=== PATIENT | male | born 1980 | race Caucasian/White ===

== ENCOUNTER 2018-11-21 10:55 | Emergency (ER) | payer SELFPAY ==
[2018-11-21] MEDS ORDERED: NACL IV ONE ×3 (11:25)
[2018-11-21] MEDS ORDERED: MVI IV ONE ×3 (11:25)
[2018-11-21] MEDS ORDERED: DEXTROSE IV ONE ×3 (11:25)
[2018-11-21] MEDS ORDERED: VITAMIN K IV ONE ×3 (11:25)
[2018-11-21] MEDS ORDERED: Sodium Chloride 0.9% 10 ML Syringe FLUSH PRN (11:25)
[2018-11-21] MEDS ORDERED: THIAMINE IV ONE ×3 (11:25)
[2018-11-21] MEDS: LORazepam 2 MG/ML SDV IVPUSH PRN ×3 (11:35→14:43)
[2018-11-21] MEDS ORDERED: Ondansetron 4 MG Tab.DIS PO PRN (11:38)
[2018-11-21] MEDS ORDERED: LORazepam 2 MG/ML SDV ONE ×2 (11:40→14:33)
--- NOTE | 2018-11-21 11:47 | EDM.PDOC ---
ED HPI GENERAL MEDICAL PROBLEM - General Chief Complaint: Drug or Alcohol Abuse Stated Complaint: ETOH Abuse Time Seen by Provider: 11/21/18 11:19 Source of Information: Reports: Patient, RN History Limitations: Reports: Other (restless) - History of Present Illness INITIAL COMMENTS - FREE TEXT/NARRATIVE: 38 yr male presents and wants to go to detox. States he did have some alcohol today, but vomited, states he has been drinking heavily for about 2 weeks. Drinks about a traveler of vodka daily or 12 pack of beer. He does chew tobacco and a can last a few days. He used to smoke and hasn't smoked for about 4 years. States no other medication use. He thought he smoked weed about 1 day ago. States the anxiety has been bad and started about 5 am today, states if he has some alcohol in the morning, the anxiety usually goes away. States no hallucinations, no nausea until today. Stomach Pain Score (Numeric/FACES): 7 - Related Data Allergies Allergy/AdvReac Type Severity Reaction Status Date / Time No Known Allergies Allergy Verified 11/21/18 11:01 Home Meds: Home Meds NK [No Known Home Meds] 11/21/18 [History] ED ROS GENERAL - Review of Systems Review Of Systems: See Below Constitutional: Reports: Decreased Appetite HEENT: Reports: No Symptoms Respiratory: Reports: Cough Cardiovascular: Reports: No Symptoms GI/Abdominal: Reports: Decreased Appetite, Nausea. Denies: Abdominal Pain, Diarrhea : Reports: No Symptoms Musculoskeletal: Reports: Other (weakness and shakiness) Skin: Reports: No Symptoms Neurological: Reports: No Symptoms Psychiatric: Reports: Anxiety. Denies: Agitation, Hallucinations, Suicidal Ideation ED EXAM, GENERAL - Physical Exam Exam: See Below Exam Limited By: No Limitations General Appearance: Alert, No Apparent Distress, Anxious Ears: Hearing Grossly Normal Ear Exam: Bilateral Ear: Auricle Normal Nose: Normal Inspection Throat/Mouth: Normal Voice, No Airway Compromise Head: Atraumatic, Normocephalic Neck: Supple, Non-Tender, Full Range of Motion Respiratory/Chest: No Respiratory Distress, Lungs Clear, Normal Breath Sounds, Chest Non-Tender Cardiovascular: Normal Peripheral Pulses, No Edema, Tachycardia Peripheral Pulses: 2+: Radial (L), Radial (R) GI/Abdominal: Normal Bowel Sounds, Soft, Non-Tender Extremities: Normal Range of Motion, Non-Tender, Normal Capillary Refill, Other (hand tremors noted) Neurological: Alert, Oriented, Normal Cognition Psychiatric: Anxious Skin Exam: Warm, Normal Color Course - Vital Signs Last Recorded V/S: Last Vital Signs Temp 99.1 F 11/21/18 13:27 Pulse 116 H 11/21/18 14:34 Resp 16 11/21/18 14:34 BP 140/85 11/21/18 14:34 Pulse Ox 98 11/21/18 14:34 - Orders/Labs/Meds Orders: Active Orders 24 hr Category Date Time Status CIWAA Assessment [RC] Q30M Care 11/21/18 11:23 Active EKG Documentation Completion [RC] ASDIRECTED Care 11/21/18 11:40 Active Up With Assistance [RC] ASDIRECTED Care 11/21/18 11:25 Active Vital Signs [RC] Q30M Care 11/21/18 11:25 Active Peripheral IV Insertion Adult [OM.PC] Urgent Oth 11/21/18 11:25 Ordered Resuscitation Status Routine Resus Stat 11/21/18 11:25 Ordered Labs: Laboratory Tests 11/21/18 11/21/18 11/21/18 Range/Units 11:20 11:20 11:20 WBC 18.4 H D (4.0-11.0) K/uL RBC 5.54 (4.50-6.50) M/uL Hgb 17.2 (13.0-18.0) g/dL Hct 50.0 (40.0-54.0) % MCV 90 (76-96) fL MCH 31.0 (27.0-32.0) pg MCHC 34.4 (31.0-35.0) g/dL RDW 13.6 (11.0-16.0) % Plt Count 248 D (150-400) K/uL MPV 9.9 (6.0-10.0) fL Neut % (Auto) 88.2 H (45.0-70.0) % Lymph % (Auto) 6.5 L (20.0-40.0) % [place] % (Auto) 5.0 (3.0-10.0) % Eos % (Auto) 0.0 L (1.0-5.0) % Baso % (Auto) 0.3 (0.0-0.5) % Neut # (Auto) 16.20 H (2.00-7.50) K/uL Lymph # (Auto) 1.19 L (1.50-4.00) K/uL [place] # (Auto) 0.92 H (0.20-0.80) K/uL Eos # (Auto) 0.00 L (0.04-0.40) K/uL Baso # (Auto) 0.05 (0.02-0.10) K/uL Sodium 142 (136-145) mmol/L Potassium 3.8 (3.5-5.1) mmol/L Chloride 95 L (98-107) mmol/L Carbon Dioxide 24.7 (21.0-32.0) mmol/L Anion Gap 26.1 H (5.0-15.0) mmol/L BUN 19 D (8-26) mg/dL Creatinine 1.15 D (0.70-1.30) mg/dL Est Cr Clr Drug Dosing TNP Estimated GFR (MDRD) > 60 (>60) MLS/MIN BUN/Creatinine Ratio 16.5 (6-25) Glucose 137 H D (74-100) mg/dL Calcium 10.0 (8.5-10.1) mg/dL Total Bilirubin 1.0 D (0.0-1.0) mg/dL AST 51 H (15-37) U/L ALT 48 (12-78) U/L Alkaline Phosphatase 75 (46-116) U/L Total Protein 9.0 H (6.4-8.2) g/dL Albumin 5.1 H (3.4-5.0) g/dL Globulin 3.9 (2.2-4.2) g/dL Albumin/Globulin Ratio 1.3 (0.8-2.0) TSH, Ultra Sensitive 1.067 (0.358-3.740) uIU/mL Urine Color Urine Appearance (CLEAR) Urine pH (5.0-8.0) Ur Specific [place] (1.003-1.030) Urine Protein (NEGATIVE) mg/dL Urine Glucose (UA) (NEGATIVE) mg/dL Urine Ketones (NEGATIVE) mg/dL Urine Occult Blood (NEGATIVE) Urine Nitrite (NEGATIVE) Urine Bilirubin (NEGATIVE) Urine Urobilinogen (0.2-1.0) E.U./dL Ur Leukocyte Esterase (NEGATIVE) Urine RBC /HPF Urine WBC /HPF Hyaline Casts /HPF Fine Granular Casts /HPF Urine Opiates Screen (NEGATIVE) Ur Oxycodone Screen (NEGATIVE) Urine Methadone Screen (NEGATIVE) Ur Barbiturates Screen (NEGATIVE) Ur Tricyclics Screen (NEGATIVE) Ur Phencyclidine Scrn (NEGATIVE) Ur Amphetamine Screen (NEGATIVE) U Methamphetamines Scrn (NEGATIVE) Urine MDMA Screen (NEGATIVE) U Benzodiazepines Scrn (NEGATIVE) U Cocaine Metab Screen (NEGATIVE) U Marijuana (THC) Screen (NEGATIVE) Ethyl Alcohol 67.0 H (0.0-0.0) mg/dL 11/21/18 11/21/18 Range/Units 12:06 12:06 WBC (4.0-11.0) K/uL RBC (4.50-6.50) M/uL Hgb (13.0-18.0) g/dL Hct (40.0-54.0) % MCV (76-96) fL MCH (27.0-32.0) pg MCHC (31.0-35.0) g/dL RDW (11.0-16.0) % Plt Count (150-400) K/uL MPV (6.0-10.0) fL Neut % (Auto) (45.0-70.0) % Lymph % (Auto) (20.0-40.0) % [place] % (Auto) (3.0-10.0) % Eos % (Auto) (1.0-5.0) % Baso % (Auto) (0.0-0.5) % Neut # (Auto) (2.00-7.50) K/uL Lymph # (Auto) (1.50-4.00) K/uL [place] # (Auto) (0.20-0.80) K/uL Eos # (Auto) (0.04-0.40) K/uL Baso # (Auto) (0.02-0.10) K/uL Sodium (136-145) mmol/L Potassium (3.5-5.1) mmol/L Chloride (98-107) mmol/L Carbon Dioxide (21.0-32.0) mmol/L Anion Gap (5.0-15.0) mmol/L BUN (8-26) mg/dL Creatinine (0.70-1.30) mg/dL Est Cr Clr Drug Dosing Estimated GFR (MDRD) (>60) MLS/MIN BUN/Creatinine Ratio (6-25) Glucose (74-100) mg/dL Calcium (8.5-10.1) mg/dL Total Bilirubin (0.0-1.0) mg/dL AST (15-37) U/L ALT (12-78) U/L Alkaline Phosphatase (46-116) U/L Total Protein (6.4-8.2) g/dL Albumin (3.4-5.0) g/dL Globulin (2.2-4.2) g/dL Albumin/Globulin Ratio (0.8-2.0) TSH, Ultra Sensitive (0.358-3.740) uIU/mL Urine Color Yellow Urine Appearance Clear (CLEAR) Urine pH 5.0 (5.0-8.0) Ur Specific [place] >= 1.030 (1.003-1.030) Urine Protein >=300 H (NEGATIVE) mg/dL Urine Glucose (UA) Negative (NEGATIVE) mg/dL Urine Ketones 15 H (NEGATIVE) mg/dL Urine Occult Blood Small H (NEGATIVE) Urine Nitrite Negative (NEGATIVE) Urine Bilirubin Small H (NEGATIVE) Urine Urobilinogen 0.2 (0.2-1.0) E.U./dL Ur Leukocyte Esterase Negative (NEGATIVE) Urine RBC 0-5 H /HPF Urine WBC 0-5 H /HPF Hyaline Casts Moderate /HPF Fine Granular Casts Moderate H /HPF Urine Opiates Screen Negative (NEGATIVE) Ur Oxycodone Screen Negative (NEGATIVE) Urine Methadone Screen Negative (NEGATIVE) Ur Barbiturates Screen Negative (NEGATIVE) Ur Tricyclics Screen Negative (NEGATIVE) Ur Phencyclidine Scrn Negative (NEGATIVE) Ur Amphetamine Screen Negative (NEGATIVE) U Methamphetamines Scrn Negative (NEGATIVE) Urine MDMA Screen Negative (NEGATIVE) U Benzodiazepines Scrn Negative (NEGATIVE) U Cocaine Metab Screen Negative (NEGATIVE) U Marijuana (THC) Screen Positive H (NEGATIVE) Ethyl Alcohol (0.0-0.0) mg/dL Meds: Medications Discontinued Medications Generic Name Dose Route Start Last Admin Trade Name Freq PRN Reason Stop Dose Admin Thiamine HCl 100 mg/ 1,011 mls @ 500 mls/hr 11/21/18 11:25 11/21/18 11:55 Multivitamins/Minerals 10 ml/ IV 11/21/18 13:26 500 mls/hr Dextrose/Sodium Chloride ONETIME ONE Administration Sodium Chloride 1,000 mls @ 125 mls/hr 11/21/18 14:15 11/21/18 14:10 Normal Saline IV 125 mls/hr ASDIRECTED BOB Administration Lorazepam 0 mg 11/21/18 11:28 11/21/18 14:43 Ativan IVPUSH 1 mg Q1H PRN Administration Anxiety Protocol Lorazepam Confirm 11/21/18 11:40 11/21/18 11:43 Ativan Administered 11/21/18 11:41 Not Given Dose 2 mg .ROUTE .STK-MED ONE Lorazepam Confirm 11/21/18 14:33 11/21/18 14:36 Ativan Administered 11/21/18 14:34 Not Given Dose 2 mg .ROUTE .STK-MED ONE Ondansetron HCl 4 mg 11/21/18 11:38 Zofran Odt PO ONETIME PRN Nausea Sodium Chloride 10 ml 11/21/18 11:25 Saline Flush FLUSH ASDIRECTED PRN Keep Vein Open - Re-Assessments/Exams Free Text/Narrative Re-Assessment/Exam: 11/21/18 14:29 Ativan 1mg IV given X 2 and improvement noted of anxiety, improved shakiness, improved nausea. Labs reviewed, elevated WBC, no other symptoms of infection noted. No fever, chest x-ray completed and no acute infiltrates noted, urine sample without bacteria. Electrolytes and kidney function normal. IV with MVI and thiamine given. Urine drug screen positive for THC, but no other positives. Blood ETOH 0.67. TSH is normal. Contact with [place], [place] detox and unable to accept pt. Contact to [place], [place] detox and bed available. Pt hungry and eating piece of toast and milk. Friend is checking on ability to transport pt to and from detox. Will fax photo id, face sheet, notes and labs to [phone]. Pt would like to receive detox and wants to feel better and needs help with this. Transfer to detox via private vehicle, to [facility]. Departure - Departure Time of Disposition: 15:20 Disposition: DC/Tfer to Other 70 Condition: Fair Clinical Impression: Alcohol abuse - Discharge Information *PRESCRIPTION DRUG MONITORING PROGRAM REVIEWED*: Not Applicable *COPY OF PRESCRIPTION DRUG MONITORING REPORT IN PATIENT JOLEEN: Not Applicable Referrals: PCP,None [Primary Care Provider] - Forms: ED Department Discharge - My Orders Last 24 Hours: My Active Orders 11/21/18 11:23 CIWAA Assessment [RC] Q30M 11/21/18 11:25 Up With Assistance [RC] ASDIRECTED Vital Signs [RC] Q30M Peripheral IV Insertion Adult [OM.PC] Urgent Resuscitation Status Routine 11/21/18 11:40 EKG Documentation Completion [RC] ASDIRECTED - Assessment/Plan Last 24 Hours: My Active Orders 11/21/18 11:23 CIWAA Assessment [RC] Q30M 11/21/18 11:25 Up With Assistance [RC] ASDIRECTED Vital Signs [RC] Q30M Peripheral IV Insertion Adult [OM.PC] Urgent Resuscitation Status Routine 11/21/18 11:40 EKG Documentation Completion [RC] ASDIRECTED Plan: Contact with [facility] and unable to accept pt. Contact to [place] detox and bed available. Pt hungry and eating piece of toast and milk. Friend is checking on ability to transport pt to and from detox. Will fax photo id, face sheet, notes and [phone] Pt would like to receive detox and wants to feel better and needs help with this. Transfer to detox via private vehicle, to [facility] detox.
[2018-11-21] MEDS ORDERED: Sodium Chloride 0.9% 1,000 ML IV SCH (14:15)
[2018-11-21 14:35] VITALS: BP 140/85
--- NOTE | 2018-11-21 15:25 | CR ---
Date of Service: 11/21/18 Clinical Data: elevated WBC, cough PA AND LATERAL CHEST: Comparison is made to a prior exam dated 06/01/15. The heart size is normal. The lungs are clear. No change from the prior exam. No evidence of acute intrathoracic disease. [id number] [facility]
== END 2018-11-21 14:46 | disposition other institution (70) ==
LOC: LB.ED 10:55
DX: F10.10 Alcohol abuse, uncomplicated (principal); Y90.3 Blood alcohol level of 60-79 mg/100 ml
CPT/HCPCS: 36415; 71046; 80053; 80307; 81001; 84443; 85025; 93005; 96361; 96365; 96366; 96375; 96376; 99285-25; G0480; J2060; J3411; J7030

== ENCOUNTER 2024-01-07 13:30 | Emergency (ER) | payer SELFPAY ==
[2024-01-07] MEDS: Sodium Chloride 0.9% 1,000 ML IV ONE (14:00)
[2024-01-07 14:02] LABS: BASOPHILS ABSOLUTE AUTO 0.07 K/uL (0.02-0.10); BASOPHILS PERCENT AUTO 1.5 % (0.0-0.5); EOSINOPHILS ABSOLUTE AUTO 0.09 K/uL (0.04-0.40); EOSINOPHILS PERCENT AUTO 1.9 % (1.0-5.0); HEMATOCRIT 45.6 % (40.0-54.0); LYMPHOCYTES ABSOLUTE AUTO 1.97 K/uL (1.50-4.00); LYMPHOCYTES PERCENT AUTO 41.7 % (20.0-40.0); MEAN CORPUSCULAR HEMOGLOBIN 32.3 pg (27.0-32.0); MEAN CORPUSCULAR HGB CONC 35.1 g/dL (31.0-35.0); MEAN CORPUSCULAR VOLUME 92 fL (76-96); MONOCYTES ABSOLUTE AUTO 0.33 K/uL (0.20-0.80); NEUTROPHILS ABSOLUTE AUTO 2.26 K/uL (2.00-7.50); NEUTROPHILS PERCENT AUTO 47.9 % (45.0-70.0); PLATELET COUNT,PLT 171 K/uL (150-400); RED BLOOD CELL COUNT 4.95 M/uL (4.50-6.50); RED CELL DISTRIBUTION WIDTH 13.1 % (11.0-16.0); WHITE BLOOD CELL COUNT,WBC 4.7 K/uL (4.0-11.0)
[2024-01-07] MEDS ORDERED: Sodium Chloride 0.9% 10 ML Syringe FLUSH PRN (14:04)
[2024-01-07] MEDS: LORazepam 2 MG/ML SDV IVPUSH ONE ×4 (14:07→19:54)
[2024-01-07 14:23] LABS: A/G RATIO 1.1 (0.8-2.0); ALBUMIN 4.1 g/dL (3.4-5.0); ANION GAP 14.3 mmol/L (5.0-15.0); BILIRUBIN TOTAL 0.5 mg/dL (0.0-1.0); BUN/CREATININE RATIO 15.3 (6-25); CALCIUM 8.8 mg/dL (8.5-10.1); CARBON DIOXIDE,CO2 30.8 mmol/L (21.0-32.0); CREATININE 0.72 mg/dL (0.70-1.30); EST CRCL DRUG DOSING (CG) 156.98 mL/min; POTASSIUM,K 4.1 mmol/L (3.5-5.1); PROTEIN TOTAL,TP 7.7 g/dL (6.4-8.2)
[2024-01-07] MEDS: LORazepam 2 MG/ML SDV ONE ×3 (14:26→19:57)
[2024-01-07 15:41] LABS: APPEARANCE,URINE CLEAR (CLEAR); BILIRUBIN,URINE NEGATIVE (NEGATIVE); COLOR,URINE YELLOW; GLUCOSE,URINE NEGATIVE (NEGATIVE); KETONES,URINE NEGATIVE (NEGATIVE); LEUKOCYTE ESTERASE,URINE NEGATIVE (NEGATIVE); NITRITE,URINE NEGATIVE (NEGATIVE); OCCULT BLOOD,URINE NEGATIVE (NEGATIVE); PH,URINE 7.5 (5.0-8.0); PROTEIN,URINE NEGATIVE (NEGATIVE); UROBILINOGEN,URINE 0.2 E.U./dL (0.2-1.0)
[2024-01-07 15:42] LABS: RBC,URINE 0-5 /HPF; WBC,URINE NOT SEEN /HPF
[2024-01-07] MEDS: diphenhydrAMINE 50 MG/ML SDV ONE (15:42)
[2024-01-07] MEDS: diphenhydrAMINE 50 MG/ML SDV IVPUSH ONE ×2 (15:42→20:38)
[2024-01-07 15:44] LABS: AMPHETAMINES SCREEN, URINE NEGATIVE (NEGATIVE); BARBITURATE SCREEN,URINE NEGATIVE (NEGATIVE); BENZODIAZEPINES SCREEN,URINE NEGATIVE (NEGATIVE); METHADONE SCREEN, URINE NEGATIVE (NEGATIVE); METHAMPHETAMINES SCREEN, URINE NEGATIVE (NEGATIVE); OXYCODONE SCREEN,URINE NEGATIVE (NEGATIVE); THC SCREEN,URINE 50 NG/ML NEGATIVE (NEGATIVE)
[2024-01-07] MEDS: Sodium Chloride 0.9% 500 ML IV ONE (17:55)
[2024-01-07] MEDS ORDERED: Diazepam 5 MG Tab ONE (23:45)
[2024-01-08 05:24] VITALS: BP 108/82; PULSE 102
[2024-01-10] MEDS: Diazepam 5 MG Tab ONE (08:24)
[2024-01-10] MEDS: diphenhydrAMINE 50 MG/ML SDV ONE (08:24)
== END 2024-01-08 05:14 | disposition other institution (70) ==
LOC: LB.ED 13:30
DX: F10.10 Alcohol abuse, uncomplicated (principal)
CPT/HCPCS: 36415; 80053; 80307; 81001; 83735; 84425; 85025; 96361; 96374; 96375; 96376; 99284-25; A9270-GY; C1758; J1200; J2060; J7030; J7040

== ENCOUNTER 2024-10-10 15:44 | Emergency (ER) | payer MEDICAID ==
[2024-10-10] MEDS: Ondansetron 4 MG Tab.DIS PO ONE (16:20)
[2024-10-10 16:26] LABS: BASOPHILS ABSOLUTE AUTO 0.02 K/uL (0.02-0.10); BASOPHILS PERCENT AUTO 0.5 % (0.0-0.5); EOSINOPHILS ABSOLUTE AUTO 0.12 K/uL (0.04-0.40); EOSINOPHILS PERCENT AUTO 3.0 % (1.0-5.0); LYMPHOCYTES ABSOLUTE AUTO 1.50 K/uL (1.50-4.00); LYMPHOCYTES PERCENT AUTO 37.3 % (20.0-40.0); MEAN PLATELET VOLUME 9.0 fL (6.0-10.0); MONOCYTES ABSOLUTE AUTO 0.32 K/uL (0.20-0.80); MONOCYTES PERCENT AUTO 8.0 % (3.0-10.0); NEUTROPHILS ABSOLUTE AUTO 2.06 K/uL (2.00-7.50); NEUTROPHILS PERCENT AUTO 51.2 % (45.0-70.0); PLATELET COUNT,PLT 144 K/uL (150-400); RED BLOOD CELL COUNT 4.43 M/uL (4.50-6.50); RED CELL DISTRIBUTION WIDTH 13.2 % (11.0-16.0); WHITE BLOOD CELL COUNT,WBC 4.0 K/uL (4.0-11.0)
[2024-10-10 17:03] LABS: A/G RATIO 1.2 (0.8-2.0); ALANINE AMINOTRANSFERASE,ALT 73.0 U/L (12-78); ASPARTATE AMNIOTRANSFERASE,AST 64.0 U/L (15-37); BILIRUBIN TOTAL 0.3 mg/dL (0.0-1.0); BLOOD UREA NITROGEN,BUN 8.0 mg/dL (8-26); CARBON DIOXIDE,CO2 34.1 mmol/L (21.0-32.0); CHLORIDE,CL 109.0 mmol/L (98-107); CREATININE 0.67 mg/dL (0.70-1.30); EST CRCL DRUG DOSING (CG) 166.99 mL/min; ESTIMATED GFR 120.0 mL/min (>60); ETHANOL BLOOD MEDICAL 195.0 mg/dL (<3.0); GLUCOSE RANDOM 91.0 mg/dL (74-100); POTASSIUM,K 4.2 mmol/L (3.5-5.1); PROTEIN TOTAL,TP 6.9 g/dL (6.4-8.2); SODIUM,NA 149.0 mmol/L (136-145)
[2024-10-10 17:55] VITALS: BP 127/82; PULSE 97
== END 2024-10-10 18:00 | disposition home or self-care (01) ==
LOC: LB.ED 15:44
DX: F10.230 Alcohol dependence with withdrawal, uncomplicated (principal); F17.210 Nicotine dependence, cigarettes, uncomplicated; Z86.16 Personal history of COVID-19; Y90.9 Presence of alcohol in blood, level not specified
CPT/HCPCS: 36415; 80053; 80307; 85025; 99284; A9270-GY; Q0162